=== PATIENT | female | born 1950 | race Caucasian/White ===

== ENCOUNTER 2025-03-28 07:32 | Outpatient (OUT) | payer OTHER, SELFPAY ==
--- NOTE | 2025-03-28 | XR_ITS ---
[place] [id number] Patient Name: VAISHALI MENDOZA MRN: [id number] date: 1950 Sex: F Assigned Patient Location: [facility] Current Patient Location: [facility] Accession/Order Number: [id number] Exam Date: 03/28/2025 11:12 Report Date: 03/28/2025 19:58 At the request of: ALEE BOWER DO Procedure: XR knee LT 2V History: Right knee pain. No injury 4 views right knee. Adequate alignment without acute displaced fracture. No patellar subluxation. Mild medial joint space narrowing. No joint effusion. 2 views left knee. Medial joint space narrowing with marginal spurring. Adequate alignment without acute displaced fracture. No patellar subluxation. XR/XR knee LT 2V IMPRESSION: Mild bilateral medial knee degeneration. Impression dictated by: Dilip Dia M.D. 03/28/2025 7:58 PM Dictation Location: [place] [address] Electronically authenticated by: [id number] Y Date: 03/28/2025 19:58
--- NOTE | 2025-03-28 | XR_ITS ---
[place] [id number] Patient Name: VAISHALI MENDOZA MRN: [id number] date: 1950 Sex: F Assigned Patient Location: [facility] Current Patient Location: [facility] Accession/Order Number: [id number] Exam Date: 03/28/2025 11:12 Report Date: 03/28/2025 19:58 At the request of: ALEE BOWER DO Procedure: XR knee LT 2V History: Right knee pain. No injury 4 views right knee. Adequate alignment without acute displaced fracture. No patellar subluxation. Mild medial joint space narrowing. No joint effusion. 2 views left knee. Medial joint space narrowing with marginal spurring. Adequate alignment without acute displaced fracture. No patellar subluxation. XR/XR knee RT 4V IMPRESSION: Mild bilateral medial knee degeneration. Impression dictated by: Dilip Dia M.D. 03/28/2025 7:58 PM Dictation Location: [place] [address] Electronically authenticated by: [id number] Y Date: 03/28/2025 19:58
--- OUTSIDE RECORDS SUMMARY | 2025-03-28 07:39 | XMS_ITS | Clinical Summary ---
Author [facility] Address [id number] [address] [place] [address] Care Team Providers Care Director Of Spa And Guest Experience Name Role Phone Unavailable Primary Care Provider Unavailabl e Allergies Active AllergyReactionsCriticalityNoted CjneFtunupqxAioulc95/16/2019LactoseHigh 02/21/20193424Abieosgzrppzv41/23/1152Dgmlb77/16/2019 Medications MedicationSigDispense QuantityRefillsLast FilledStart DateEnd DateStatus BIOTIN ORAL Take by mouth daily.Active albuterol (PROVENTIL HFA;VENTOLIN HFA) 90 mcg/actuation inhaler as needed.Active ALPRAZolam (XANAX) 0.25 mg tablet Take 0.25 mg by mouth nightly as needed for anxiety.Active escitalopram (LEXAPRO) 10 mg tablet Indications:Anxiety and depressionTake 1/2 tablet by mouth daily x 7 days; then one tablet daily 30 tablet ctive lisinopriL (PRINIVIL,ZESTRIL) 20 mg tablet Indications:Essential hypertensionTake 1 tablet (20 mg total) by mouth in the morning. 30 tablet 01/26/2022ctive pantoprazole (PROTONIX) 40 mg EC tablet Indications:Gastroesophageal reflux disease without esophagitisTake 1 tablet (40 mg total) by mouth in the morning. 30 tablet 2Active Active Problems ProblemNoted DateDiagnosed MsrkVcdwyttiautf87/20/2017 Immunizations ImmunizationAdministration DatesNext DueInfluenza High Dose Preservative Free IM 04/08/2021Influenza, Im Trivalent Dmohuxnegoao06/13/2013,04/19/2012Influenza, Injectable, quadrivalent (PF)02/21/2019(Deferred: Other - over-65 type not available today, notified PT we will call when available)Tdap106/20/2011Zoster Live04/20/2013 Family History Medical HistoryRelationNameCommentsStrokeBrotherSpina bifidaSisterBreast cancer Neg HxRelationNameStatusCommentsBrotherSister Social History Tobacco UseTypesPacks/DayYears UsedDateSmoking Tobacco: FormerSmokeless Tobacco: NeverAlcohol UseStandard Drinks/WeekCommentsYes0 (1 standard drink = 0.6 oz pure alcohol)occasionallyPHQ-2AnswerDate RecordedTotal Ipqjg7665/01/2021Childcare AnswerDate XndmhsjyVrdrvtdmzOezuosz09/02/2019EmploymentAnswerDate Recorded HhmnkljdarTbvvlgf27/02/2019Purpose - LifeAnswerDate RecordedPurpose and direction in szetFzwrsrf74/12/2021CommentsNoSex and Gender Information ValueDate RecordedSex Assigned at BirthNot on fileLegal VguUnhwpc06/04/2015 11:58 AM EDTGender IdentityNot on fileSexual OrientationNot on file Last Filed Vital Signs Vital SignReadingTime TakenCommentsBlood Jaepzqzo85/6204/08/2021 1:13 PM EST Guypj581004/08/2021 1:13 PM BFJNuoqsxvorjz79.1 ??C (96.9 ??F)04/08/2021 1:13 PM ESTRespiratory Fmro083106/01/2020 7:02 PM ESTOxygen Tylgrjhdth84%04/08/2021 1:13 PM ESTInhaled Oxygen Concentration--Xobzbg69.6 kg (160 lb)04/08/2021 1:13 PM EST Foncng151.6 cm (5' 6 )04/08/2021 1:13 PM ESTBody Mass Index25.8204/08/2021 1:13 PM EST Plan of Treatment Health MaintenanceDue DateLast DoneCommentsDepression Magipicma26/04/1964Tobacco Hnfqfooem36/04/1964Adult BMI Igacvisje80/04/1970Zoster (Shingles) Vaccine (2 of 3)Fall Risk Lrqpsxkdx63/04/6162Vjagrpnei72 DTaP,Tdap and Td Vaccines (2 - Td or Tdap)COVID-19 Vaccine (3 - season)504/05/2020, 07/10/2020Influenza Rtgahwy8701/07/2025 04/08/2021, 04/20/2013, 04/19/2012RSV ( or age 60+ yrs) (1 - 1-dose 75+ series)07/10/2026 Medical Devices Not on file Procedures Procedure NamePriorityDate/TimeAssociated DiagnosisCommentsMAMM SCREENING BILATERAL W EZZHzgrmyf23/24/2019 11:27 AM EDT Encounter for screening mammogram for malignant neoplasm of breast from Last 3 Months or Most Recently Relevant to Health Maintenance Results * Mammography screening bilateral with CAD (03/01/2019 11:27 AM EDT)Anatomical RegionLateralityModalityBreastBilateralMammographySpecimen (Source)Anatomical Location / LateralityCollection Method / VolumeCollection TimeReceived Time 03/01/2019 11:32 AM EDT Narrative 03/01/2019 11:33 AM EDT MAMM SCREENING BILATERAL W CAD WITH TOMOSYNTHESIS HISTORY: Screening. COMPARISON: 03/07/2007 FINDINGS: The breasts are heterogeneously dense, which may obscure small masses. ??Negative for malignancy. Computer-aided detection was used in the interpretation of this examination. IMPRESSION: BIRADS 1 - Negative. ??Normal interval follow-up in 12 months. OVERALL ASSESSMENT- NEGATIVE. A letter of notification will be sent to the patient regarding the results. Finalized by Geoff Al MD on 03/01/2019 11:33 AM MAMM 1 YR 1 c Procedure Note Geoff Al MD - 03/01/2019 MAMM SCREENING BILATERAL W CAD WITH TOMOSYNTHESIS HISTORY: Screening. COMPARISON: 03/07/2007 FINDINGS: The breasts are heterogeneously dense, which may obscure smallmasses. Negative for malignancy. Computer-aided detection was used in the interpretation of thisexamination. IMPRESSION: BIRADS 1 - Negative. Normal interval follow-up in 12 months. OVERALL ASSESSMENT- NEGATIVE. A letter of notification will be sent to the patient regarding theresults. Finalized by Geoff Al MD on 03/01/2019 11:33 AM MAMM 1 YR 1 c Authorizing ProviderResult TypeResult Statusmika Carson CASE MANAGEMENT ASSOCIATE-CNPIMG MAMMOGRAPHY ORDERABLESFinal Result from Last 3 Months or Most Recently Relevant to Health Maintenance Insurance
--- OUTSIDE RECORDS SUMMARY | 2025-03-28 07:39 | XMS_ITS | Clinical Summary ---
Author Organization [facility] Address [address] [place] [address] Care Team Providers Care Cable Tender Name Role Phone Unavailable Primary Care Provider Unavailabl e Social History Tobacco UseTypesPacks/DayYears UsedDateSmoking Tobacco: Never Assessed CommentsUnknownSex and Gender InformationValueDate RecordedSex Assigned at Not on fileLegal QhlLmvjue93/15/2023 6:57 PM EDTGender IdentityNot on fileSexual OrientationNot on file Last Filed Vital Signs Vital SignReadingTime TakenCommentsBlood Pressure--Pulse--Temperature-- Respiratory Rate--Oxygen Saturation--Inhaled Oxygen Concentration--Nfpbrv63.6 kg (160 lb)04/16/2021 12:00 PM PQEDbhzic481.9 cm (5' 6.5 )04/16/2021 12:00 PM EST Body Mass Index25.44106/17/2020 12:00 PM EST Plan of Treatment Not on file Insurance
== END 2025-03-28 07:33 | disposition home or self-care (01) ==
LOC: RAD 07:32
PROVIDERS: PCP Family Medicine; Visit Provider Physician Assistant
DX: S89.91XA Unspecified injury of right lower leg, initial encounter (principal); M17.0 Bilateral primary osteoarthritis of knee
CPT/HCPCS: 73560; 73564